=== PATIENT | male | born 1980 | race Two or more races ===

== ENCOUNTER 2025-07-11 07:10 | Day surgery (SDC) | payer MEDICAID, SELFPAY ==
[2025-07-11] VITALS (12 sets, daily range): BP systolic 104–172; BP diastolic 77–92; PULSE 49–70; RESP 10–18; TEMP 36.5–36.6; O2SAT 92–99; BMI 26.4
[2025-07-11] MEDS: RINGERS LACTATED 500 ML 500 ML 20 ML IV (08:27)
[2025-07-11] MEDS: MIDAZOLAM INJ 1 MG/ML VIAL 2 ML (ASD USE ONLY) 2 MG IVP (08:33)
[2025-07-11] MEDS: fentaNYL CIT INJ 50 mCg/ML AMP 2ML (ASD USE ONLY) IVP (08:38)
== END 2025-07-11 09:27 | disposition home or self-care (01) ==
PROVIDERS: PCP Nurse Practitioner Family; Referring Provider Internal Medicine Gastroenterology; Visit Provider Internal Medicine Gastroenterology
PROC: 0DBE8ZX Excision of Large Intestine, Via Natural or Artificial Opening Endoscopic, Diagnostic (ICD-10-PCS; CPT 45380; principal; 2025-07-11 08:15)
DX: Z12.11 Encounter for screening for malignant neoplasm of colon (principal); D12.5 Benign neoplasm of sigmoid colon; K63.89 Other specified diseases of intestine; K64.9 Unspecified hemorrhoids; K62.1 Rectal polyp
CPT/HCPCS: 45380; A4217; A4649; J1200; J2250; J3010; J7120